=== PATIENT | female | born 1985 | race Hispanic/Latino ===

== ENCOUNTER 2018-03-08 13:12 | Outpatient (CLI) | payer OTHER ==
--- NOTE | 2018-03-08 15:07 | RAD ---
FOUR VIEWS LEFT KNEE: History: Contusion. Fall. FINDINGS: Joint spaces are preserved. No fracture. No malalignment. There is a suprapatellar effusion. IMPRESSION: Suprapatellar effusion, without evidence of fracture. If there is concern for ligamentous or meniscal injury, MRI could be performed on a non-emergent basis. POS: [facility]
--- NOTE | 2018-03-08 15:08 | RAD ---
RIGHT ANKLE THREE VIEWS: History: Right ankle injury. FINDINGS: Ankle mortise and talar dome are intact. Small heel spur. Soft tissue swelling over the lateral malle olus. A triangular 0.4 cm ossific fragment just medial to the tip of the malleolus shows an irregular , incompletely ossified base. IMPRESSION: Probably acute 4 mm ossific avulsion from the tip of the lateral malleolus. Overlying soft tissue swe lling. POS: [facility]
== END 2018-03-08 13:13 | disposition home or self-care (01) ==
LOC: BICRAD 13:12
DX: S93.411D Sprain of calcaneofibular ligament of right ankle, subsequent encounter (principal); S80.02XD Contusion of left knee, subsequent encounter; M79.89 Other specified soft tissue disorders; M25.462 Effusion, left knee

== ENCOUNTER 2020-03-24 19:44 | Emergency (ER) | payer MEDICAID, OTHER | END 2020-03-24 20:21 | disposition left against medical advice (07) | LOC: ERS 19:44 | DX: Z53.21 Procedure and treatment not carried out due to patient leaving prior to being seen by health care provider (principal) ==

== ENCOUNTER 2022-10-08 05:34 | Emergency (ER) | payer BC, SELFPAY ==
[2022-10-08 06:15] LABS: #Eosinphils 0.1 thou/uL (0.0-0.7); #Lymphocytes 0.7 thou/uL (1.20-3.40); #Monocytes 0.5 thou/uL (0.11-0.59); #Neutrophils 9.6 thou/uL (1.40-6.50); %Eosinophils 0.6 % (0.0-10.0); %Lymphocytes 6.1 % (21.0-51.0); %Monocytes 4.3 % (0.0-10.0); Hemoglobin 15.3 g/dL (12.0-16.0); Mean Corpuscular HGB CONC 34.4 g/dL (32.0-36.0); Mean Corpuscular Hemoglobin 31.4 pg (27.0-31.0); Mean Corpuscular Volume 91.2 fl (78.0-98.0); Mean Platelet Volume 8.2 fL (7.4-10.4); Platelet Count 206 10x3/uL (130-400); RBC Distribution Width 12.2 % (11.5-14.5); Red Blood Cell (RBC) Count 4.88 mill/uL (4.20-5.40); White Blood Cell (WBC) Count 10.8 10x3/uL (4.8-10.8)
[2022-10-08 06:16] LABS: BHCG - Serum Negative (NEGATIVE); Pregs Control Background? CLEAR/WHITE (CLR/WHITE); Pregs Control Bar Appear? YES (CONTROL BAR)
[2022-10-08 06:34] LABS: ALT (SGPT) 20 U/L (8-55); AST (SGOT) 13 U/L (5-34); Albumin 3.9 g/dL (3.5-5.0); Alkaline Phosphatase 83 U/L (40-110); Anion Gap 12 mmol/L (10-20); BUN (Urea Nitrogen) 8 mg/dL (7.0-18.7); Bilirubin, Total 1.2 mg/dL (0.2-1.2); Calc. Creatinine Clearance 0 mL/min (70-130); Calcium 9.1 mg/dL (7.8-10.44); Carbon Dioxide 22 mmol/L (22-29); Chloride 104 mmol/L (98-107); Estimated GFR 117; Globulin 3.2 g/dL (2.4-3.5); Glucose 122 mg/dL (70-105); Lipase 6 U/L (8-78); Protein, Total 7.1 g/dL (6.0-8.3); Sodium 134 mmol/L (136-145)
[2022-10-08 08:18] LABS: Bilirubin Negative (Negative); Blood, Urine Negative (Negative); Clarity Clear (Clear); Glucose, Urine (Dipstick) Normal (Negative); Ketone, Urine Negative (Negative); Leukocyte Negative Leu/uL (Negative); Nitrite Negative (Negative); Protein, Urine (Dipstick) Negative (Neg-Trace); Specific Gravity, Urine 1.005 (1.002-1.036); Urobilinogen Normal mg/dL (Less than 2)
== END 2022-10-08 09:16 | disposition home or self-care (01) ==
LOC: ERS 05:34
DX: K52.9 Noninfective gastroenteritis and colitis, unspecified (principal); E03.9 Hypothyroidism, unspecified
CPT/HCPCS: 80053; 81003; 83690; 84443; 84703; 85025; 93005; 96361; 96374